=== PATIENT | female | born 1940 | race Caucasian/White ===

== ENCOUNTER → 2017-05-03 | Outpatient (CLI) | payer OTHER ==
[~2017-05-03] MED LIST: ALPH200C PO; B COMPLEX; CEPHALEXIN PO; CHOL400C PO; CYAN1TAB29 PO; HYDROCODONE PO; IBUPROFEN PO; KELP PO; L CARNITINE PO; LEVO100T5 PO; LIOT25TA3 PO; MAGNESIUM; MULTIVITAMIN; OMEG1CAP6 PO; OMEPRAZOLE PO; SCOP1PAT TD; SELENIUM; SILICA; SOLI5TAB PO; THYR120T PO; THYR90TA PO; VITAMIN D3 PO; [UNRECOGNIZED DRUG - OTHER]; [UNRECOGNIZED DRUG - OTHER]
== END | disposition home or self-care (01) ==
LOC: STAR 08:26
PROVIDERS: ATTEND Urology
DX: Z01.818 Encounter for other preprocedural examination (principal); N39.41 Urge incontinence; N39.3 Stress incontinence (female) (male); I10 Essential (primary) hypertension; E78.00 Pure hypercholesterolemia, unspecified; M19.90 Unspecified osteoarthritis, unspecified site
CPT/HCPCS: 93005

== ENCOUNTER 2017-05-07 05:33 | Day surgery (SDC) | payer OTHER ==
[2017-05-03 08:49] VITALS: BP 189/95
[~2017-05-07] VITALS: Ht 167.6 cm; Wt 80.0 kg
[~2017-05-07 05:33] MED LIST changes: -ALPH200C PO; -CHOL400C PO; -CYAN1TAB29 PO; -L CARNITINE PO; -OMEG1CAP6 PO; -SOLI5TAB PO
[2017-05-07] MEDS ORDERED: LIDOCAINE 1%, 2ML ONE (06:11)
[2017-05-07] MEDS ORDERED: LACTATED RINGERS 1,000 ML IV SCH (06:21)
[2017-05-07] MEDS ORDERED: OMEG1CAP6 PO (06:25)
[2017-05-07] MEDS ORDERED: ALPH200C PO (06:25)
[2017-05-07] MEDS ORDERED: L CARNITINE PO (06:25)
[2017-05-07] MEDS ORDERED: CHOL400C PO (06:25)
[2017-05-07] MEDS ORDERED: CYAN1TAB29 PO (06:25)
[2017-05-07] MEDS ORDERED: LIDOCAINE 1%, 2ML SQ PRN (06:30)
[2017-05-07] MEDS ORDERED: EPINEPHRINE 1 MG/ML, 1ML ONE (06:44)
[2017-05-07] MEDS ORDERED: BUPIVACAINE/PF 0.25% ONE (06:44)
[2017-05-07] MEDS ORDERED: NEOMY/POLYMYXIN B GU IRR. 1 ML IRRIG ONE (07:02)
[2017-05-07] MEDS ORDERED: FENTANYL PF 250 MCG/5ML ONE (07:13)
[2017-05-07] MEDS ORDERED: MIDAZOLAM 1 MG/ML, 2ML ONE (07:14)
[2017-05-07] MEDS ORDERED: CIPROFLOXACIN/PMX 400MG/200ML 200 ML ONE (07:14)
[2017-05-07] MEDS ORDERED: SOLI5TAB PO (07:18)
[2017-05-07] MEDS ORDERED: DEXAMETHASONE 4 MG/ML, 1ML ONE (07:28)
[2017-05-07] MEDS ORDERED: METOCLOPRAMIDE 5 MG/ML, 2ML ONE (07:28)
[2017-05-07] MEDS ORDERED: PROPOFOL 10 MG/ML, 20ML ONE (07:28)
[2017-05-07] MEDS ORDERED: ONDANSETRON 2MG/ML, 2ML ONE (07:28)
[2017-05-07] MEDS ORDERED: HYDROmorphone 1 MG/ML, 1ML IV PRN (08:30)
[2017-05-07] MEDS ORDERED: FENTANYL PF 100 MCG/2ML IV PRN (08:30)
[2017-05-07] MEDS ORDERED: ACETAMINOPHEN 325 MG TABLET PO PRN (08:30)
[2017-05-07] MEDS ORDERED: MEPERIDINE/PF 25MG/0.5ML IVPush PRN (08:30)
[2017-05-07] MEDS ORDERED: LABETALOL 5MG/ML, 20ML IV PRN (08:30)
[2017-05-07] MEDS ORDERED: PROMETHAZINE 25 MG/ML, 1ML IV PRN (08:30)
[2017-05-07] MEDS ORDERED: OXYcodone 5 MG/5 ML ORAL.SOL UDC PO PRN (08:30)
[2017-05-07] MEDS ORDERED: ONDANSETRON 2MG/ML, 2ML IVPush PRN (08:30)
[2017-05-07] MEDS ORDERED: hydrALAzine 20 MG/ML, 1ML IV PRN (08:30)
[2017-05-07] MEDS ORDERED: ACETAMINOPHEN 325 MG TABLET ONE (08:58)
[2017-05-07] MEDS ORDERED: ACETAMINOPHEN 650 MG/20.3 ML UDC ONE (08:58)
== END 2017-05-07 10:40 ==
LOC: OUT 05:33
PROVIDERS: ATTEND Urology
DX: N39.3 Stress incontinence (female) (male) (principal); E03.9 Hypothyroidism, unspecified; I10 Essential (primary) hypertension; E78.00 Pure hypercholesterolemia, unspecified; F17.210 Nicotine dependence, cigarettes, uncomplicated; Z98.890 Other specified postprocedural states; Z87.39 Personal history of other diseases of the musculoskeletal system and connective tissue
CPT/HCPCS: 57288; 81001; 87086; C1771; J0171; J0744; J1100; J2250; J2405; J2704; J2765; J3010; J3490; J7120

== ENCOUNTER → 2017-10-02 | Outpatient (CLI) | payer OTHER ==
[~2017-10-02] MED LIST changes: +ALPH200C PO; +CHOL400C PO; +CYAN1TAB29 PO; +L CARNITINE PO; +OMEG1CAP6 PO; +SOLI5TAB2 PO
== END | disposition home or self-care (01) ==
LOC: CFH 13:56
PROVIDERS: ATTEND Nurse Practitioner Gerontology
DX: N28.1 Cyst of kidney, acquired (principal); N18.2 Chronic kidney disease, stage 2 (mild); I12.9 Hypertensive chronic kidney disease with stage 1 through stage 4 chronic kidney disease, or unspecified chronic kidney disease; E78.5 Hyperlipidemia, unspecified; G47.33 Obstructive sleep apnea (adult) (pediatric)
CPT/HCPCS: 76770

== ENCOUNTER → 2018-03-06 | Outpatient (CLI) | payer OTHER ==
[~2018-03-06] MED LIST changes: -SCOP1PAT TD; +SCOP1PAT11 TD
== END | disposition home or self-care (01) ==
LOC: CVU 11:19 → EDSTATUS 12:00
PROVIDERS: ATTEND Internal Medicine Cardiovascular Disease
DX: I10 Essential (primary) hypertension (principal); Z87.891 Personal history of nicotine dependence
CPT/HCPCS: 93306